=== PATIENT | female | born 1980 | race Caucasian/White ===

== ENCOUNTER 2019-05-25 08:16 | Day surgery (SDC) | payer OTHER ==
[~2019-05-25 08:16] MED LIST: FENTANYL CITR 100 MCG/2 ML ONE; GLYCOPYRROLATE 0.2 MG/ML SYR ONE; LIDOCAINE 2% MPF 5 ML VIAL ONE; MIDAZOLAM HCL 2 MG/2 ML INJ ONE; NEOSTIGMINE 1 MG/ML -10 ML VIAL ONE; NS 0.9% VIAL 10 ML ONE; ONDANSETRON 4 MG/2 ML VIAL ONE; PROPOFOL 200 MG/20 ML VIAL IV ONE; Phenylephrine HCl 10 MG/ML 1 ML VIAL ONE; ROCURONIUM 50 MG/5 ML VIAL IV ONE
[2019-05-25] MEDS ORDERED: CEFAZOLIN SODIUM 1 GM/VIAL ONE (08:17)
[2019-05-25] MEDS ORDERED: NS 0.9% VIAL 20 ML ONE ×2 (08:17→10:29)
[2019-05-25] MEDS ORDERED: GENTAMICIN SULF 80 MG/2ML INJ ONE (08:17)
[2019-05-25] MEDS ORDERED: Mastisol Adhesive Liq ONE (08:18)
[2019-05-25] MEDS ORDERED: BACITRACIN 50000 UNIT VIAL ONE (08:18)
[2019-05-25] MEDS ORDERED: Ringers Lactate 1,000 ML IV ONE ×4 (08:18→13:05)
--- NOTE | 2019-05-25 08:19 | RAD REPORT ---
EXAM DESCRIPTION: RAD - Chest Pa And Lat (2 Views) - 05/25/2019 8:12 am CLINICAL HISTORY: preop Chest pain. COMPARISON: No comparisons FINDINGS: The lungs are clear. The heart is normal in size. No displaced fractures. IMPRESSION: No acute or concerning finding suspected.
[2019-05-25] MEDS ORDERED: SCOPOLAMINE HYDROBROMIDE PATCH TD ONE ×3 (08:21→09:13)
[2019-05-25 08:22] LABS: Specific Gravity >= 1.030 (1.005-1.030)
[2019-05-25] MEDS ORDERED: CEFAZOLIN/SWI 1gm 1 GM/10 ML SYR ONE (08:22)
[2019-05-25 08:59] LABS: T3 Free 2.83 pg/mL (2.18-3.98); Thyroid Stimulating Hormone 0.225 uIU/mL (0.360-3.740)
[2019-05-25] MEDS ORDERED: ROCURONIUM 50 MG/5 ML VIAL IV ONE ×3 (10:00→13:01)
[2019-05-25] MEDS ORDERED: MORPHINE 10 MG/ML VIAL ONE (10:29)
--- NOTE | 2019-05-25 12:28 | EKG ---
Test Date: 2019-05-25 Test Time: 08:12:32 [employer] Customer Service Manager: TAY MEASUREMENT RESULTS: Intervals: Rate: 58 OR: 154 QRSD: 86 QT: 380 QTc: 373 [place]: P: 11 OR: 154 QRS: 62 T: 53 INTERPRETIVE STATEMENTS: Sinus bradycardia Otherwise normal ECG No previous ECG available for comparison Electronically Signed On 05-25-19 12:26:41 CDT by Fer Read
[2019-05-25] MEDS ORDERED: PROMETHAZINE 25 MG/ML VIAL ONE (14:23)
[2019-05-25] MEDS: HYDROMORPHONE HCL 1 MG/ML INJ ONE ×2 (14:25→14:35)
[2019-05-25 15:09] VITALS: BP 97/50; TEMP 97; O2SAT 95
[2019-05-25] MEDS ORDERED: CODEINE 30MG/APAP 300MG TAB ONE (15:24)
--- NOTE | 2019-05-26 00:55 | OP ---
Surgeon: Leonard Clark MD [employer] Winding Operator: Nathan. Preoperative Diagnosis: Breast descent. Postoperative Diagnosis: Breast descent. Procedure: Breast lift. Anesthesia: General. Procedure In Detail: After satisfactory induction of general anesthesia, the chest was prepped with DuraPrep, dry sterile drapes applied in the usual manner. 42 template was used to outline in the rig ht and left areolas. Then, a transverse curvilinear incision was made with scalpel. Intervening ski n was de-epithelialized. Both breasts were done simultaneously. The flap was 1.2 cm thick, elevated towards the sternum, clavicle, anterior axillary line. After this was done, an inferior incision wa s made and the breast was formed in a cone. Prior to that excess breast tissue cephalad and lateral were removed. Conization was performed with 2-0 PDS suture. This was done, straps were elevated at the right breast at the 12 o'clock, 1:30, and 3 o'clock position. The straps were then woven in and out of the pectoralis major muscle, back to the base of the cone back to themselves, tied with 2-0 PD S suture, 3 o'clock strap was sewn over the sternum with 2-0 Ethibond. A mirror image procedure was done on the left side. At this time the wounds were temporarily stapled shut. Patient sat up, asymm etry was marked, excess skin and dog ears marked. Patient returned supine. Wounds were irrigated wi th antibiotic solution, excess tissue was cut off, 10 SOPHIA was brought out the axilla and sewn in place with 2-0 silk, later closure consisted of 3-0 Vicryl subcu, 3 PDS running subcuticular tied in the v ertical meridian breast. After this was done, patient was sat up. Site for new nipple-areolar compl ex was marked out. The tissue cored out, and then sutured with interrupted 4-0 PDS running subcuticu lar. Dressings consisted of tincture of benzoin, Steri-Strips, 5 x 5's, fluffs, and Jeronimo wrap. Lashon nt tolerated the procedure well and returned to recovery. The amount removed from the right breast w as 80 and left 104 g. KB/CLAUDIO Voice ID: [id number] Report ID: [id number]
== END 2019-05-25 16:57 | disposition home or self-care (01) ==
LOC: OR 08:16
PROVIDERS: ATTEND Specialist
PROC: 0H0V0ZZ Alteration of Bilateral Breast, Open Approach (ICD-10-PCS; principal; 2019-05-25 09:00)
DX: N64.81 Ptosis of breast (principal)
CPT/HCPCS: 93005; 36415; 81025; 88305; 84443; 84481; 84439; 71046; 19316; J2704; J2710; J2550; J2370; J1580; J2250; J3010; J1170; J0690 ×2; J7120 ×4; J2405